=== PATIENT | female | born 1995 | race African-American/Black ===

== ENCOUNTER 2019-10-16 14:42 | Outpatient (CLI) | payer OTHER, SELFPAY ==
--- NOTE | 2019-10-16 | ECHO_ITS ---
Patient Info Name: Tracee Brown Age: 23 years : 1995 Gender: Female Ht: 68 in Wt: 166 lbs BSA: 1.91 m2 HR: 55 bpm BP: 125 / 75 mmHg Heart Rhythm: Bradycardia Technical Quality: Good Exam Date: 10/16/2019 3:03 PM Exam Location: [facility] Patient Status: Outpatient Admit Date: 10/16/2019 Staff Ordering Physician: Jacobo Marion MD Fruit Cutter: Maxime Condon RDCS Attending Provider: Jacobo Marion MD Referring Physician: Doni CORCORAN; Exam Type: CA echo doppler color flow Study Info Indications I49.9 - Cardiac arrhythmia, unspecified Complete two-dimensional, color flow and Doppler transthoracic echocardiogram is performed. History/Risk Factors Arrhythmia. Summary 1. Complete two-dimensional, color flow and Doppler transthoracic echocardiogram is performed. 2. Left ventricular chamber dimension is normal. 3. Left ventricular systolic function is normal, estimated at 60-65%. 4. The left ventricular diastolic function is normal. 5. E/e' 6 is not elevated. 6. No pulmonary hypertension, estimated pulmonary arterial systolic pressure is 29 mmHg. 7. There is trace pulmonic regurgitation. Left Ventricle E/e' 6 is not elevated. Left ventricular chamber dimension is normal. Left ventricular systolic function is normal, estimated at 60-65%. The left ventricular diastolic function is normal. Right Ventricle Right ventricular chamber dimension is normal. Right ventricular systolic function is normal. Left Atria Left atrial chamber dimension is normal. Right Atria Right atrial chamber dimension is normal. Aortic Valve The aortic valve is trileaflet. There is no aortic valve stenosis. There is no aortic valve regurgitation. Pulmonic Valve There is trace pulmonic regurgitation. Mitral Valve There is no mitral valve stenosis. There is no mitral valve regurgitation. Tricuspid Valve There is no tricuspid valve regurgitation. No pulmonary hypertension, estimated pulmonary arterial systolic pressure is 29 mmHg. Pericardium/Pleural There is no pericardial effusion. Inferior Vena Cava Normal inferior vena cava with >50% collapse upon inspiration consistent with normal right atrial pressure, 5 mmHg. Aorta The aortic root size at the sinus of Valsalva is normal. Left Ventricular Outflow Tract Name Value Normal LVOT 2D LVOT Diameter 2.0 cm LVOT Doppler LVOT Peak Gradient 3 mmHg LVOT Mean Gradient 2 mmHg LVOT VTI 21 cm LVOT VTI/AV VTI Ratio 1.0 LVOT Stroke Volume 66 ml LVOT CO 3.5 l/min LVOT CI 1.8 l/min/m2 Mitral Valve Name Value Normal MV Doppler MV Decel [place]
--- NOTE | 2019-10-22 11:46 | WPDHOLTEREM ---
Holter/Event Monitor Holter/Event Monitor Date of procedure: 10/16/19 Procedure Type: 48 hour holter monitor Indications: Arrhythmias Conclusion: 1. 48 hour holter monitor on 10/16/19. 2. Underlying rhythm is sinus rhythm. HR range 50-135 bpm; average HR 80 bpm. 3. There is one premature supraventricular complex. No supraventricular tachycardia. 4. No premature ventricular complex. No ventricular tachycardia. 5. No sinoatrial or atrioventricular blocks. No significant pauses greater than 2 seconds. 6. Patient reports sharp chest pains which demonstrate sinus rhythm, HR range 63-81 bpm.
== END 2019-10-16 14:43 | disposition home or self-care (01) ==
PROVIDERS: Visit Provider Internal Medicine
DX: I49.8 Other specified cardiac arrhythmias (principal)
CPT/HCPCS: 93225; 93226; 93306

== ENCOUNTER → 2020-06-10 03:23 | Outpatient (CLI) | payer OTHER, SELFPAY ==
[2020-06-10 20:31] LABS: SARS-CoV-2 RNA PCR Negative
== END ==
PROVIDERS: PCP Internal Medicine; Visit Provider Otolaryngology
DX: Z01.812 Encounter for preprocedural laboratory examination (principal); Z20.822 Contact with and (suspected) exposure to COVID-19
CPT/HCPCS: C9803; U0003; U0005

== ENCOUNTER 2020-06-13 01:53 | Day surgery (SDC) | payer OTHER, SELFPAY ==
[2020-05-29 14:44] VITALS: BMI 25.1
--- NOTE | 2020-06-12 09:28 | PM.IMHP ---
H&P: HPI History of Present Illness Date/Time: 06/12/20 09:28 24-year-old female presents with a left-sided intranasal lesion anterior in the vestibule. Presents for planned surgical excision. Reports no changes in symptoms or medical history. Chief Complaint: Nasal lesion left Review of Systems Constitutional: Constitutional: Denies fatigue, Denies fever(s) and Denies lethargy Eyes: Eyes: Denies blurry vision and Denies change in vision ENT: Reports as per HPI Cardiovascular: Cardiovascular: Denies chest pain Respiratory: Respiratory: Denies cough Endocrine: Endocrine: Denies fatigue Hematologic/Lymphatic: Hematologic/Lymphatic: Denies easy bleeding, Denies easy bruising and Denies lymphadenopathy Allergic/Immunologic: Allergic/Immunologic: Denies seasonal rhinorrhea [facility] Past Medical History Medical History (Updated 01/22/20 @ 15:38 by Moisés Whiteside MD) BMI 25.0-25.9,adult Encounter to establish care Nasal Polyp 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 Onychomycosis Periodic heart flutter Social History Social History (Updated 04/16/20 @ 09:41 by Drea Perez [facility]) Smoking status: Never smoker Alcohol intake: current Drinks per week: 3 Substance use: never Substance use type: does not use Meds Home Medications and Allergies Home Medications Medication Instructions Recorded Confirmed Type norgestimate 0.25 mg-ethinyl 1 tablet PO DAILY #84 tablet 11/02/19 05/29/20 Rx estradiol 35 mcg tablet Allergies Allergy/AdvReac Type Severity Reaction Status Date / Time No Known Allergies Allergy Verified 04/16/20 09:40 Exam Const: General: cooperative, healthy appearing, comfortable, well developed and alert HENMT: Head: normal to inspection, normocephalic and atraumatic Ears: hearing grossly normal bilaterally, external ears normal, TM's normal bilaterally and EAC's normal General nose exam: Normal external nose present, nares abnormal ( Right normal left submucosal cyst just anterior and nasal passage on floo), No nasal polyps present, Normal nasal mucous membranes and turbinates present and Normal septum present Face and sinus: normal facial exam Mouth: Yes Normal oral and palatal mucosa present, Yes lip normal, Yes tongue normal, Yes oropharynx normal and Yes moist mucous membranes Teeth and gingiva: dentition normal and gingiva normal Throat: posterior oropharynx normal, tonsils normal and uvula midline Eyes: General: appearance normal, both eyes and all related structures Periorbital: periorbital findings normal Eyelids: eyelids normal Conjunctivae: conjunctivae normal Sclera: sclerae normal Neck: Neck: normal visual inspection, full ROM and no lymphadenopathy Thyroid: thyroid normal Lymphatic: no lymphadenopathy noted Resp: Effort & Inspection: normal respiratory effort and able to speak in complete sentences Cardio: Jugular venous distension: no JVD Neuro: Cranial nerves: Yes CN's II-XII intact bilaterally Assessment and Plan Assessment and plan (1) Nasal lesion: Code(s): J34.89 - Other specified disorders of nose and nasal sinuses Status: Acute Assessment and Plan: patient presents with a cyst in the left anterior nasal passage on the floor. Plan is for the operating room for surgical excision. Risks risk us in great detail including bleeding infection damage to surrounding structures need for further procedures and change in cosmesis. Patient voiced understanding of these risks and agreed.
[2020-06-13] VITALS (8 sets, daily range): BP systolic 104–131; BP diastolic 69–82; PULSE 50–66; RESP 10–18; TEMP 36.1–36.9; O2SAT 99–100
--- NOTE | 2020-06-13 06:43 | WPDANESEPPF ---
Anes - Initial Pre Proc Eval Procedure: Operation Date: 06/13/20 07:30 Proposed Procedures p Excision Left Intranasal Lesion - Moisés Whiteside MD Date/Time: 06/13/20 06:43 Surgeon: Moisés Whiteside MD Pre Op Diagnosis: left intranasal lesion Patient Data Age: 24 Gender: F Height: 5 ft 8 in Weight: 74.9 kg Last Vital Signs Temp 36.9 C 06/13/20 06:37 Pulse 61 06/13/20 06:37 Resp 16 06/13/20 06:37 BP 112/69 06/13/20 06:37 Pulse Ox 99 06/13/20 06:37 Allergies Allergy/AdvReac Type Severity Reaction Status Date / Time No Known Allergies Allergy Verified 06/13/20 06:18 Home Medications Medication Instructions Recorded Confirmed Type norgestimate 0.25 mg-ethinyl 1 tablet PO DAILY #84 tablet 11/02/19 06/13/20 Rx estradiol 35 mcg tablet Patient hx anesthesia problems: none Family hx anesthesia problems: none PMFSH Past Medical History Medical History (Updated 06/13/20 @ 06:44 by Maxime Babcock MD) BMI 25.0-25.9,adult Encounter to establish care Nasal fracture Nasal Polyp On longterm drug therapy Onychomycosis Periodic heart flutter Social History Social History Smoking status: Never smoker Alcohol intake: current Drinks per week: 3 Substance use: never Substance use type: does not use Living arrangements: with family Anes - Eval Final PreProcedure Day of Procedure 06/13/20 06:43 Patient weight: normal Heart: regular rate and rhythm Lungs: clear to auscultation Airway: Mallampati scale class 1 Neurological: alert and oriented Last oral intake: >/= 8 hours ASA classification: I Emergent: no Anesthetic plan: proceed Anesthesia type and monitoring: general ETT and standard monitoring Informed Consent: The patient's anesthetic plan and its attendant risks and benefits were discussed with the patient/family/POA. Questions were solicited and answers provided to the satisfaction of the patient/family/POA.
[2020-06-13] MEDS: LACTATED RINGERS 1,000 ML 30 ML IV CONT (06:57)
--- NOTE | 2020-06-13 07:07 | WPDHPUPDATE1 ---
History and Physical Update Update Date/Time: 06/13/20 07:07 History and Physical has been reviewed, including an updated exam of the patient. There are NO changes in the patient's condition. Risks, benefits, and alternatives have been discussed and questions answered. Patient agrees to proceed with procedure.
[2020-06-13] MEDS: LIDO 1%/EPINEPHRINE 1:100,000 50 ML VIAL INFILTRATE (07:29)
[2020-06-13] MEDS: OXYMETAZOLINE HCL 0.05% NAS 15 ML BTL (*BKC) 1 SPRAY NASAL (07:32)
--- NOTE | 2020-06-13 07:58 | PM.PROC ---
Procedure Note - Detailed Date of procedure: 06/13/20 Pre-op diagnosis: left intranasal lesion Post-op diagnosis: same Procedure performed: Excision of left vestibular/intranasal lesion Description of procedure: The patient was correctly identified and consent was verified in the preoperative holding area. The patient was then brought to the operating room and a time-out was performed. General anesthesia was induced and an LMA was secured the patient's airway. The patient was then prepped and draped for the aforementioned procedure. And other time-out was performed. Afrin-soaked pledgets were placed in the next nasal pat in the left-sided nasal passage and allowed to sit for 5 minutes before being removed. There is a small cystic soft tissue lesion on the floor of the nose just anterior and slightly posterior to the inferior turbinate. 0.3 cc of 1% lidocaine with 1 100,000 parts epinephrine was injected into the anterior portion of the soft tissue. A 15 blade was utilized to make a small incision and sharp scissors utilized to remove the portion of mucosa overlying the lesion. The lesion appeared to be redundant mucosa with scant amounts of fat. This was removed and sent for pathologic analysis. Bleeding was controlled the intermittent usage of bipolar electrocautery at a setting of 8 as well as the intermittent application of Afrin-soaked pledgets. Following excision of the lesion the nasal passage appeared much more normal. There was no bleeding. I performed all dictated portions of the procedure. Care of the patient was turned over to Anesthesiology. Anesthesia: GLMA Surgeon: Moisés Whiteside MD Estimated blood loss (mL): 2 Drains: No Packing: No Pathology: yes Complications: No immediate complications Condition: stable Disposition: PACU Findings: Left soft tissue intranasal lesion just anterior to the inferior turbinate
[2020-06-13] MEDS: oxyCODONE HCL (*CRX) 5 MG TAB IR PO (09:32)
== END 2020-06-13 09:50 | disposition home or self-care (01) ==
PROVIDERS: PCP Internal Medicine; Visit Provider Otolaryngology
PROC: (CPT 30117; principal; 2020-06-13 07:30)
DX: J34.89 Other specified disorders of nose and nasal sinuses (principal)
CPT/HCPCS: 30117; 88305; A9270; C9803; J0330; J1100; J2250; J2405; J2704; J3010; J7120; U0003; U0005

== ENCOUNTER 2020-06-17 23:30 | Emergency (ER) | payer OTHER, SELFPAY ==
--- NOTE | ~2020-06-17 | CT_ITS ---
EXAMINATION: CT abdomen pelvis w con DATE: 06/18/2020 00:27 INDICATION: Abdominal pain. TECHNIQUE: Computed tomography (CT) of the abdomen and pelvis was performed with 100 mL Omnipaque 350 intravenous contrast. Automated exposure control and iterative reconstruction technique were employe d. The dose-length product was 411.56 mGy-cm. COMPARISON: None. FINDINGS: The visualized portions of the lung bases are clear without pneumonia or pleural effusion. The heart size is normal. No pericardial effusion. The liver, gallbladder, spleen, pancreas, adrenal glands, and kidneys are normal. There are no dilated loops of bowel. The appendix is normal. There ar e no pathologically enlarged lymph nodes. There is trace pelvic ascites. The bones are unremarkable. IMPRESSION: 1. No etiology for the patient's symptoms. Reviewed, dictated and finalized at location A.
[2020-06-17 23:33] VITALS: BP 117/66; PULSE 87; RESP 17; TEMP 36.6; O2SAT 99
[2020-06-18 00:13] LABS: Basophils Percent Auto 0.4 % (0.2-1.2); Eosinophils Absolute Auto 0.1 K/mm3 (0-0.3); Eosinophils Percent Auto 1.4 % (0-4.4); Hematocrit 37.5 % (37.0-47.0); Immature Granulocyte Absolute 0.02 K/mm3 (0.00-0.031); Immature Granulocyte Percent A 0.2 % (0-0.5); Lymphocytes Absolute Auto 3.64 K/mm3 (0.9-3.2); Lymphocytes Percent Auto 38.9 % (18.3-44.2); Mean Corpuscular HGB Conc 34.7 g/dl (32-36); Mean Corpuscular Hemoglobin 29.4 pg (26-34); Mean Corpuscular Volume 84.8 fl (80-100); Mean Platelet Volume 10.3 fl (7.4-10.4); Monocytes Absolute Auto 0.6 K/mm3 (0.1-0.6); Neutrophils Percent Auto 53.1 % (45.5-73.1); Platelet Count Result 282 k/mm3 (150-375); Red Blood Count 4.42 M/mm3 (4.2-5.4); Red Cell Distribution Width 12.1 % (11.5-14.5); White Blood Count 9.4 K/mm3 (4.5-10.0)
[2020-06-18 00:16] LABS: Add Urine Microscopic? YES; Appearance Urine Cloudy (Clear); Bilirubin Urine Negative (Negative); Blood Urine 1+ (Negative); Color Urine Yellow (Yellow); Glucose Urine UA Negative (Negative); Ketones Urine Negative (Negative); Leukocyte Esterase Ur Negative LEU/UL (Negative); Mucus Urine Rare /lpf; Nitrate Urine Negative (Negative); Protein Urine 1+ mg/dL (Negative); RBC Urine 0-2 /hpf (0-2); Squamous Epithelial Cell Urine Few /hpf (Few); Urobilinogen Urine Negative mg/dL (<2.0); WBC Urine 0-3 /hpf
--- NOTE | 2020-06-18 00:17 | ED.ABDPAIN ---
HPI - Abdominal Pain General Chief Complaint: Abdominal Pain Stated Complaint: Intermitten abd pain Time Seen by Provider: 06/17/20 23:43 Source: patient, family and RN notes reviewed Mode of arrival: ambulatory Limitations: no limitations History of Present Illness HPI narrative: Patient is 24 years old -[place] female presents with diffuse mid lower abdominal pain woke her up from sleep 45 minutes prior to arrival to the emergency room. Patient reports that the pain was so severe 10 out of 10, resolved after she urinated in the emergency room. Currently patient is pain-free. Patient denies any fever, chills, nausea, vomiting, radiation of pain, back pain, urinary symptoms, vaginal bleeding or discharge, history of abdominal surgery patient does not smoke or uses marijuana, drinks occasionally, last menstrual. 29 days ago Related Data Allergies Allergy/AdvReac Type Severity Reaction Status Date / Time No Known Allergies Allergy Verified 06/13/20 06:18 Review of Systems Review of Systems: Narrative: CONSTITUTIONAL: Denies fever, chills, or sweats. EYES: Denies visual changes, redness, or discharge. ENT: Denies rhinorrhea, congestion, sore throat, or otalgia. CARDIOVASCULAR: Denies chest pain, palpitations, or edema. RESPIRATORY: Denies cough or dyspnea. GASTROINTESTINAL: Denies abdominal pain, nausea, vomiting, or diarrhea. GENITOURINARY: Denies dysuria or hematuria. SKIN: Denies rash or itching. MUSCULOSKELETAL: Denies back pain, joint pain, or myalgia. NEUROLOGIC: Denies headache, numbness, or weakness. PSYCHIATRIC: Denies anxiety or depression. [facility] Past Medical History Medical History BMI 25.0-25.9,adult Encounter to establish care Nasal fracture Nasal Polyp On senior care drug therapy Onychomycosis Periodic heart flutter Social History Social History Smoking status: Never smoker Alcohol intake: current Drinks per week: 3 Substance use: never Substance use type: does not use Gender identity (if verbalized by the patient): Female Exam Narrative: Exam Narrative: General appearance: Well-developed, well-nourished Skin: Normal color Head: Normocephalic, nontraumatic Eyes: Clear conjunctiva ENT: Oropharynx normal, ears normal, nose normal Neck: Supple, nontender Chest and respiratory: Airway patent, no respiratory distress, no accessory muscle use Heart: Regular rate/rhythm Abdomen: Soft, nontender, no organomegaly, quiet bowel sounds Vascular: Normal peripheral pulses, normal capillary refill. Musculoskeletal: Normal range of motion, nontender back Neurologic: Alert and oriented ?3, SPECIAL AGENT is normal as tested, no gross motor deficit Course Course Emergency Course: Improved Vital Signs Vital signs: Vital Signs Temperature 36.6 C 06/17/20 23:33 Pulse Rate 87 06/17/20 23:33 Respiratory Rate 17 06/17/20 23:33 Blood Pressure 117/66 06/17/20 23:33 Pulse Oximetry 99 06/17/20 23:33 Temperature 36.6 C 06/17/20 23:33 Pulse Rate 87 06/17/20 23:33 Respiratory Rate 17 06/17/20 23:33 Blood Pressure 117/66 06/17/20 23:33 Pulse Oximetry 99 06/17/20 23:33 MDM - Abdominal Pain MDM Narrative Medical decision making narrative: Patient presents with lower abdominal pain, resolved after using the bathroom, physical exam was very benign. Labs, UA, ordered. Further plan to follow please look at the differential diagnosis below Differential Diagnosis Differential diagnosis: Likely abdominal pain, acute appendicitis, calculus of kidney, constipation, diverticulitis and other (Gas) Lab Data
[2020-06-18 00:20] LABS: Estimated CRCL calculation 77 ml/min; Estimated Glomerular Filt Rate > 60
[2020-06-18 00:24] LABS: Alanine Aminotransferase 11 U/L (4-35); Albumin Level 3.9 g/dL (3.5-5.1); Alkaline Phosphatase 60 U/L (38-126); Anion Gap 4 mmol/L (8-16); Aspartate Amino Transferase 24 U/L (14-36); Bilirubin,Total 0.3 mg/dL (0.2-1.3); Blood Urea Nitrogen 19 mg/dL (7-17); Calcium 9.1 mg/dL (8.4-10.2); Carbon Dioxide 30 mmol/L (22-30); Chloride 105 mmol/L (98-107); Estimated CRCL calculation 77 ml/min; Estimated Glomerular Filt Rate > 60; Glucose 100 mg/dL (65-105); Lipase 42 U/L (23-300); Potassium 3.3 mmol/L (3.4-5.0); Sodium 139 mmol/L (137-145)
[2020-06-18 00:36] VITALS: BP 115/59; PULSE 78; RESP 16; O2SAT 100
[2020-06-18] MEDS: SODIUM CHLORIDE 0.9% IV 1,000 ML 999 ML IV CONT (00:36)
[2020-06-18 01:21] VITALS: BP 122/72; PULSE 78; RESP 18; O2SAT 100
== END 2020-06-18 01:21 | disposition home or self-care (01) ==
PROVIDERS: Emergency Provider Emergency Medicine; PCP Internal Medicine
DX: K52.9 Noninfective gastroenteritis and colitis, unspecified (principal)
CPT/HCPCS: 36415; 74177; 80053; 81001; 81025; 83690; 85025; 96360; 99284; J7030; Q9967

== ENCOUNTER 2022-05-04 07:39 | Outpatient (CLI) | payer BC, SELFPAY ==
[2022-05-04 09:20] LABS: Hepatitis B Surface Antigen Negative (Negative)
[2022-05-04 09:25] LABS: HIV 1/2 Ab P24 Ag Result Negative (Negative)
[2022-05-04 09:37] LABS: Hepatitis C Virus Antibody Negative (Negative)
[2022-05-06 15:56] LABS: Rapid Plasma Reagin Non-Reactive (NonReactive)
[2022-05-08 21:28] LABS: HSV 1 IgM Screen Negative (Negative); HSV 2 IgM Screen Negative (Negative)
== END 2022-05-04 07:40 | disposition home or self-care (01) ==
LOC: ANHLAB 07:41
PROVIDERS: Visit Provider Registered Nurse
DX: Z11.3 Encounter for screening for infections with a predominantly sexual mode of transmission (principal)
CPT/HCPCS: 36415; 86592; 86695; 86696; 86703; 86803; 87340; G0432

== ENCOUNTER 2023-09-28 08:48 | Outpatient (CLI) | payer BC, SELFPAY ==
[2023-09-28 09:58] LABS: HIV 1/2 Ab P24 Ag Result Negative (Negative)
[2023-09-28 11:57] LABS: Hepatitis B Surface Antigen Negative (Negative)
[2023-09-28 12:14] LABS: Hepatitis C Virus Antibody Negative (Negative)
[2023-09-29 08:05] LABS: Rapid Plasma Reagin Non-Reactive (NonReactive)
== END 2023-09-28 08:49 | disposition home or self-care (01) ==
LOC: ANHLAB 08:49
PROVIDERS: Visit Provider Nurse Practitioner Obstetrics & Gynecology
DX: Z11.3 Encounter for screening for infections with a predominantly sexual mode of transmission (principal)
CPT/HCPCS: 36415; 86592; 86703; 86803; 87340; G0432